=== PATIENT | female | born 2000 | race Hispanic/Latino ===

== ENCOUNTER 2024-09-12 17:20 | Emergency (ER) | payer SELFPAY ==
[2024-09-12] MEDS ORDERED: diphenhydrAMINE 25 MG CAP ONE (19:16)
== END 2024-09-12 19:37 | disposition home or self-care (01) ==
LOC: ERS 17:20
DX: O99.891 Other specified diseases and conditions complicating pregnancy (principal); T78.40XA Allergy, unspecified, initial encounter; Z3A.10 10 weeks gestation of pregnancy
CPT/HCPCS: 99282